=== PATIENT | male | born 1980 | race Caucasian/White ===

== ENCOUNTER 2023-05-03 11:41 | Outpatient (CLI) | payer BC | END 2023-05-03 11:42 | disposition home or self-care (01) | LOC: CSHRAD 11:41 | PROVIDERS: ATTEND Otolaryngology Otolaryngic Allergy | DX: G47.33 Obstructive sleep apnea (adult) (pediatric) (principal); Z98.890 Other specified postprocedural states | CPT/HCPCS: 71046; 72040 ==